=== PATIENT | female | born 1970 | race Caucasian/White ===

== ENCOUNTER → 2018-06-22 | Outpatient (CLI) | payer BC, OTHER ==
--- NOTE | 2018-06-22 14:55 | RAD ---
EXAM: Right foot, 2 views. HISTORY: Pain. COMPARISON: None. FINDINGS: 2 views of the right foot are obtained. There is no fracture, dislocation or subluxation. There are tiny accessory ossicles adjacent to the navicular bone. IMPRESSION: No acute osseous finding. Electronically signed by: Callie Bergeron MD (06/22/2018 2:52 PM) [id number]
== END | disposition home or self-care (01) ==
LOC: PMG 14:24
PROVIDERS: ATTEND Registered Nurse
DX: S99.921A Unspecified injury of right foot, initial encounter (principal); X58.XXXA Exposure to other specified factors, initial encounter; Y93.89 Activity, other specified; Y92.89 Other specified places as the place of occurrence of the external cause; Y99.8 Other external cause status
CPT/HCPCS: 73620